=== PATIENT | male | born 1990 | race Two or more races ===

== ENCOUNTER 2021-01-22 09:09 | Emergency (ER) | payer OTHER ==
[~2021-01-22] VITALS: Ht 177.8 cm; Wt 68.9 kg
[2021-01-22] MEDS ORDERED: PERCOCET 5-3251 EACH PO (14:20)
== END 2021-01-22 14:40 | disposition home or self-care (01) ==
LOC: ER 09:09
DX: M25.561 Pain in right knee (principal); D57.00 Hb-SS disease with crisis, unspecified